=== PATIENT | male | born 1945 | race Caucasian/White ===

== ENCOUNTER 2025-08-08 09:00 | Day surgery (SDC) | payer OTHER ==
[2025-08-08] MEDS ORDERED: DICLOFENAC SODIUM 100 MG SUPP.RECT RECTAL ONE (10:30)
[2025-08-08] MEDS ORDERED: GLUCAGON 1 MG VIAL IV ONE ×2 (10:30→11:30)
[2025-08-08] MEDS ORDERED: SUGAMMADEX SODIUM 200 MG/2 ML VIAL IV ONE (11:15)
== END 2025-08-08 16:05 | disposition designated cancer center or children's hospital (05) ==
LOC: AMB-ERCP 09:00
PROVIDERS: ATTEND Internal Medicine
DX: K80.50 Calculus of bile duct without cholangitis or cholecystitis without obstruction (principal)
CPT/HCPCS: 43274; C1748